=== PATIENT | female | born 1980 | race Caucasian/White ===

== ENCOUNTER 2017-03-31 14:58 | Emergency (ER) | payer MEDICAID ==
[~2017-03-31] VITALS: Ht 177.8 cm; Wt 68.0 kg
[2017-03-31 15:37] LABS: Basophils # (auto) 0 uL; Basophils % (auto) 0.5 % (0.0-2.0); CONDITION Y; Eosinophils # (auto) 0.1 uL; Eosinophils % (auto) 1.5 % (0.0-7.0); Hematocrit 41.2 % (36.0-46.0); Hemoglobin 13.7 g/dL (12.2-16.2); Mean Corpuscular Hemoglobin 28.9 pg (28.0-32.0); Mean Corpuscular Hgb Conc. 33.2 g/dL (32.0-36.0); Mean Corpuscular Volume 87.1 fL (80.0-100.0); Mean Platelet Volume 7.9 fL (7.4-10.4); Monocytes # (auto) 0.6 uL; Monocytes % (auto) 6.9 % (0.0-12.0); Neutrophils # (auto) 6.3 uL; Neutrophils % (auto) 78.1 % (37.0-80.0); Platelet Count (auto) 504 10^3/uL (140-450); Red Cell Distribution Width 15.9 % (11.6-16.0)
[2017-03-31 15:54] LABS: Albumin 4.2 g/dL (3.4-5.0); BUN/Creatinine Ratio 7.4; Bilirubin, Total 0.9 mg/dL (0.2-1.0); Calcium 9.2 mg/dL (8.5-10.1); Potassium 3.9 mmol/L (3.5-5.1); Total Protein 8.1 g/dL (6.4-8.2)
[2017-03-31 17:03] LABS: Urine Blood Negative /uL (Negative); Urine Color Yellow (Yellow); Urine Glucose Normal (Normal); Urine Mucus FEW (None Seen); Urine Nitrite Negative (Negative); Urine RBC 8 /hpf (0 - 4); Urine Squamous Epithelial Cell FEW /hpf (<5); Urine pH 7.5 (5.0-8.0)
[2017-03-31 17:12] LABS: Urine Bilirubin Negative (Negative); Urine Ketone 1+ (Negative)
[2017-03-31] MEDS ORDERED: MORPHINE SULFATE 4 MG/ML SYRG IV ONE (18:15)
[2017-03-31] MEDS ORDERED: ONDANSETRON HCL 4 MG/2 ML VIAL IV ONE (18:15)
[2017-03-31] MEDS ORDERED: diphenhdrAMINE HCL 50 MG/1 ML VL IV ONE (18:30)
[2017-03-31] MEDS ORDERED: MORPHINE SULF INJ 2 MG/ML SYRINGE 1ML IV ONE ×2 (21:30→22:00)
[2017-03-31] MEDS ORDERED: PROMETHAZINE HCL 25 MG/ML 1ML IV ONE ×2 (21:30→22:00)
[2017-04-01 05:47] VITALS: BP 111/65
== END 2017-04-01 05:59 | disposition short-term general hospital (02) ==
LOC: ER 15:12
DX: K80.20 Calculus of gallbladder without cholecystitis without obstruction (principal); F17.210 Nicotine dependence, cigarettes, uncomplicated
CPT/HCPCS: 36415; 76705; 80053; 81001; 81025; 83690; 85025; 93005; 96374; 96375; 96376; 99285; J1200; J2270; J2405; J2550

== ENCOUNTER 2017-04-16 20:46 | Emergency (ER) | payer MEDICAID ==
[~2017-04-16] VITALS: Ht 177.8 cm; Wt 86.2 kg
[2017-04-16] MEDS: LORazepam 2MG/ML-1ML VIAL ONE ×2 (21:34→21:48)
[2017-04-16] MEDS ORDERED: SODIUM CHLORIDE 0.9% 1,000 ML IVB ONE (22:13)
[2017-04-16] MEDS ORDERED: LORazepam 2MG/ML-1ML VIAL IV ONE (22:15)
[2017-04-16 22:18] LABS: Basophils # (auto) 0.1 uL; Basophils % (auto) 0.9 % (0.0-2.0); CONDITION Y; Eosinophils # (auto) 0.6 uL; Eosinophils % (auto) 8.6 % (0.0-7.0); Hematocrit 36.4 % (36.0-46.0); Hemoglobin 11.8 g/dL (12.2-16.2); Lymphocytes # (auto) 2.3 uL; Lymphocytes % (auto) 30.8 % (10.0-50.0); Mean Corpuscular Hemoglobin 28.1 pg (28.0-32.0); Mean Corpuscular Hgb Conc. 32.4 g/dL (32.0-36.0); Mean Corpuscular Volume 86.6 fL (80.0-100.0); Mean Platelet Volume 7.8 fL (7.4-10.4); Monocytes # (auto) 0.5 uL; Monocytes % (auto) 7.3 % (0.0-12.0); Neutrophils # (auto) 3.8 uL; Neutrophils % (auto) 52.4 % (37.0-80.0); Platelet Count (auto) 397 10^3/uL (140-450); Red Cell Distribution Width 16.4 % (11.6-16.0); White Blood Cell 7.3 10^3/uL (4.4-10.8)
[2017-04-16 22:30] LABS: Urine Bilirubin Negative (Negative); Urine Blood TRACE /uL (Negative); Urine Color Colorless (Yellow); Urine Glucose Normal (Normal); Urine Ketone Negative (Negative); Urine Nitrite Negative (Negative); Urine RBC 2 /hpf (0 - 4); Urine Squamous Epithelial Cell FEW /hpf (<5); Urine Urobilinogen Normal (Negative); Urine pH 5.5 (5.0-8.0)
[2017-04-16 22:42] LABS: Albumin 3.7 g/dL (3.4-5.0); BUN/Creatinine Ratio 16.1; Bilirubin, Total 0.1 mg/dL (0.2-1.0); Calcium 8.4 mg/dL (8.5-10.1); Potassium 3.8 mmol/L (3.5-5.1); Total Protein 7.1 g/dL (6.4-8.2)
[2017-04-16] MEDS ORDERED: LEVETIRACETAM INJ 1,000 MG in SODIUM CHL 0.9% 100 ML IV ONE (22:45)
[2017-04-16] MEDS ORDERED: LEVETIRACETAM 500 MG TAB PO ONE (23:15)
[2017-04-17] MEDS ORDERED: ACETAMINOPHEN 500 MG TAB PO ONE (01:08)
[2017-04-17 01:15] VITALS: BP 125/81
== END 2017-04-17 00:42 | disposition home or self-care (01) ==
LOC: EDBD 20:46 → ER 21:03
DX: F10.129 Alcohol abuse with intoxication, unspecified (principal); G40.909 Epilepsy, unspecified, not intractable, without status epilepticus; G92 Toxic encephalopathy; F17.210 Nicotine dependence, cigarettes, uncomplicated; R41.82 Altered mental status, unspecified; Z90.49 Acquired absence of other specified parts of digestive tract; Y90.8 Blood alcohol level of 240 mg/100 ml or more
CPT/HCPCS: 36415; 70450; 80053; 80307; 80320; 81001; 82542; 84702; 85025; 96361; 96374; 99285; J1953; J2060

== ENCOUNTER 2017-10-08 13:42 | Emergency (ER) | payer MEDICAID ==
[~2017-10-08] VITALS: Ht 177.8 cm; Wt 65.8 kg
[2017-10-08 14:01] VITALS: BP 138/91
[2017-10-08] MEDS ORDERED: HYDROcodone-ACET 10/325MG TAB PO ONE (15:30)
== END 2017-10-08 15:30 | disposition home or self-care (01) ==
LOC: ER 13:42
DX: S93.401A Sprain of unspecified ligament of right ankle, initial encounter (principal); F17.210 Nicotine dependence, cigarettes, uncomplicated; F12.10 Cannabis abuse, uncomplicated; Z88.8 Allergy status to other drugs, medicaments and biological substances; Z90.49 Acquired absence of other specified parts of digestive tract; W19.XXXA Unspecified fall, initial encounter; Y93.89 Activity, other specified; Y99.8 Other external cause status; Y92.89 Other specified places as the place of occurrence of the external cause
CPT/HCPCS: 73610

== ENCOUNTER 2017-11-20 19:04 | Emergency (ER) | payer MEDICAID ==
[~2017-11-20] VITALS: Ht 177.8 cm; Wt 70.3 kg
[2017-11-20 20:13] LABS: Basophils # (auto) 0 uL; Basophils % (auto) 0.8 % (0.0-2.0); Eosinophils # (auto) 0.1 uL; Eosinophils % (auto) 1.6 % (0.0-7.0); Hematocrit 39.3 % (36.0-46.0); Hemoglobin 13.1 g/dL (12.2-16.2); Lymphocytes # (auto) 1.4 uL; Lymphocytes % (auto) 23.7 % (10.0-50.0); Mean Corpuscular Hemoglobin 29.6 pg (28.0-32.0); Mean Corpuscular Hgb Conc. 33.3 g/dL (32.0-36.0); Mean Corpuscular Volume 88.7 fL (80.0-100.0); Monocytes # (auto) 0.5 uL; Monocytes % (auto) 7.6 % (0.0-12.0); Neutrophils % (auto) 66.3 % (37.0-80.0); Platelet Count (auto) 274 10^3/uL (140-450); Red Blood Cells 4.43 10^6/uL (4.0-5.20); Red Cell Distribution Width 16.5 % (11.8-14.3)
[2017-11-20 20:18] LABS: INR 1.04 (0.9-1.15); Partial Thromboplastin Time 23.7 sec (22.64-33.71); Prothrombin Time 11.3 sec (9.37-12.3)
[2017-11-20 20:32] LABS: Albumin 3.8 g/dL (3.4-5.0); BUN/Creatinine Ratio 12.5; Bilirubin, Total 0.3 mg/dL (0.2-1.0); Calcium 8.7 mg/dL (8.5-10.1)
[2017-11-21] MEDS ORDERED: PROMETHAZINE HCL 25 MG/ML 1ML IV ONE (04:30)
[2017-11-21 06:14] LABS: Urine Bacteria NONE SEEN /hpf (None Seen); Urine Blood Negative /uL (Negative); Urine Mucus FEW (None Seen); Urine Specific Gravity 1.023 (1.001-1.035); Urine WBC 5 /hpf (0 - 5)
[2017-11-21 06:57] VITALS: BP 119/77
[2017-11-21] MEDS ORDERED: LEVETIRACETAM 500 MG TAB PO ONE (07:30)
[2017-11-21] MEDS ORDERED: ONDANSETRON HCL 4 MG/2 ML VIAL IV ONE (08:00)
[2017-11-21] MEDS ORDERED: LEVETIRACETAM INJ 500 MG in D5W 5% 100 ML IV ONE (08:00)
[2017-11-21] MEDS ORDERED: MORPHINE SULFATE 4 MG/ML SYR/VIAL IV ONE (08:00)
== END 2017-11-21 07:22 | disposition home or self-care (01) ==
LOC: ER 19:04
DX: G40.909 Epilepsy, unspecified, not intractable, without status epilepticus (principal); G35 Multiple sclerosis; F17.210 Nicotine dependence, cigarettes, uncomplicated; G89.4 Chronic pain syndrome; R53.1 Weakness; R42 Dizziness and giddiness
CPT/HCPCS: 36415; 70450; 80053; 81001; 81025; 82542; 85025; 85610; 85730; 96365; 96375; 99285; J1953; J2270; J2405; J2550; J7060

== ENCOUNTER 2017-12-03 17:35 | Inpatient (IN) | payer MEDICAID ==
[~2017-12-03] VITALS: Ht 177.8 cm; Wt 68.0 kg
[2017-12-03] MEDS ORDERED: SODIUM CHLORIDE 0.9% 1,000 ML IVB ONE (18:19)
[2017-12-03] MEDS ORDERED: LORazepam 2MG/ML-1ML VIAL IV ONE (18:30)
[2017-12-03 19:20] LABS: Basophils # (auto) 0.1 uL; Basophils % (auto) 0.9 % (0.0-2.0); Eosinophils # (auto) 0.2 uL; Eosinophils % (auto) 2.9 % (0.0-7.0); Hematocrit 41.8 % (36.0-46.0); Hemoglobin 13.6 g/dL (12.2-16.2); Lymphocytes # (auto) 1.4 uL; Lymphocytes % (auto) 20.2 % (10.0-50.0); Mean Corpuscular Hemoglobin 29.3 pg (28.0-32.0); Mean Corpuscular Hgb Conc. 32.5 g/dL (32.0-36.0); Mean Corpuscular Volume 90.2 fL (80.0-100.0); Monocytes # (auto) 0.7 uL; Neutrophils # (auto) 4.5 uL; Nucleated Red Blood Cells % 0.1 %; Platelet Count (auto) 292 10^3/uL (140-450); Red Blood Cells 4.64 10^6/uL (4.0-5.20); Red Cell Distribution Width 15.8 % (11.8-14.3); White Blood Cell 6.9 10^3/uL (4.4-10.8)
[2017-12-03 19:27] LABS: Acetaminophen < 2.0 ug/mL (10-30)
[2017-12-03 19:35] LABS: Alanine Aminotransferase 16 U/L (13-56); Albumin 3.9 g/dL (3.4-5.0); Alkaline Phosphatase 60 U/L (45-117); Anion Gap 10 (5-15); Aspartate Aminotransferase 15 U/L (15-37); BUN/Creatinine Ratio 12.5; Bilirubin, Total 0.4 mg/dL (0.2-1.0); Blood Alcohol < 3.0 mg/dL (0-5); Blood Urea Nitrogen 10 mg/dL (7-18); Calcium 8.5 mg/dL (8.5-10.1); Carbon Dioxide 18 mmol/L (21-32); Chloride 113 mmol/L (98-107); GFR African American 104 mL/min; GFR Non-African American 86 mL/min; Glucose 121 mg/dL (74-106); Potassium 3.4 mmol/L (3.5-5.1); Sodium 141 mmol/L (136-145); Total Protein 7.5 g/dL (6.4-8.2)
[2017-12-03] MEDS ORDERED: LEVETIRACETAM INJ 1,000 MG in D5W 5% 100 ML IV ONE (20:15)
[2017-12-03] MEDS ORDERED: LORazepam 2MG/ML-1ML VIAL IV PRN (20:15)
[2017-12-03] MEDS ORDERED: LEVETIRACETAM INJ 500 MG in D5W 5% 100 ML IV SCH (22:00)
[2017-12-04] MEDS ORDERED: PROMETHAZINE HCL 25 MG/ML 1ML IV ONE (04:00)
[2017-12-04] MEDS ORDERED: ACETAMINOPHEN 500 MG TAB PO PRN (04:30)
[2017-12-04] MEDS ORDERED: LORazepam 2MG/ML-1ML VIAL IV PRN (04:30)
[2017-12-04] MEDS ORDERED: ONDANSETRON HCL 4 MG/2 ML VIAL IV PRN (04:30)
[2017-12-04 05:55] VITALS: BP 140/51
[2017-12-04] MEDS ORDERED: GABAPENTIN 300 MG CAP PO SCH (06:00)
[2017-12-04 06:22] LABS: Basophils # (auto) 0.1 uL; Basophils % (auto) 1.4 % (0.0-2.0); Eosinophils # (auto) 0.2 uL; Hematocrit 40.1 % (36.0-46.0); Hemoglobin 13.1 g/dL (12.2-16.2); Lymphocytes # (auto) 1.2 uL; Lymphocytes % (auto) 22.2 % (10.0-50.0); Mean Corpuscular Hemoglobin 29.1 pg (28.0-32.0); Mean Corpuscular Hgb Conc. 32.7 g/dL (32.0-36.0); Mean Corpuscular Volume 89.2 fL (80.0-100.0); Monocytes # (auto) 0.5 uL; Neutrophils # (auto) 3.4 uL; Neutrophils % (auto) 64.4 % (37.0-80.0); Nucleated Red Blood Cells % 0.1 %; Platelet Count (auto) 256 10^3/uL (140-450); Red Cell Distribution Width 15.9 % (11.8-14.3); White Blood Cell 5.3 10^3/uL (4.4-10.8)
[2017-12-04 06:42] LABS: BUN/Creatinine Ratio 14.1; Calcium 8.7 mg/dL (8.5-10.1); Potassium 3.9 mmol/L (3.5-5.1)
[2017-12-04 09:23] LABS: Urine Bacteria NONE SEEN /hpf (None Seen); Urine Blood Negative /uL (Negative); Urine Budding Yeast MODERATE /hpf (None Seen); Urine Mucus FEW (None Seen); Urine Specific Gravity 1.031 (1.001-1.035); Urine WBC 2 /hpf (0 - 5)
[2017-12-04 09:45] LABS: Alcohol, Urine < 3.0 mg/dL (0-5); Amphetamine Screen, Urine NEGATIVE (NEGATIVE); Barbiturate Scree,Urine NEGATIVE (NEGATIVE); Benzodiazephine Screen, Urine POSITIVE (NEGATIVE); Cannabinoid Screen, Urine NEGATIVE (NEGATIVE); Cocaine Screen, Urine NEGATIVE (NEGATIVE); Opiate Scree,Urine NEGATIVE (NEGATIVE); Phencyclidine Screen, Urine NEGATIVE (NEGATIVE)
[2017-12-04] MEDS ORDERED: lamoTRIgine 100 MG TAB PO SCH (10:00)
[2017-12-04] MEDS ORDERED: LEVETIRACETAM 500 MG TAB PO SCH (10:00)
[2017-12-06] MEDS ORDERED: LAMO200T34 PO (11:55)
[2017-12-06] MEDS ORDERED: ALPR0.5T7 PO (11:55)
[2017-12-06] MEDS ORDERED: TIZA4CAP13 PO (11:55)
[2017-12-06] MEDS ORDERED: OXYC-113 PO (11:55)
== END 2017-12-04 07:00 | disposition left against medical advice (07) | DRG 812 ==
LOC: ER 17:39 → OVERFLOW 17:40
PROVIDERS: ADMIT Nurse Practitioner Family; ATTEND Internal Medicine
DX: T42.8X1A Poisoning by antiparkinsonism drugs and other central muscle-tone depressants, accidental (unintentional), initial encounter (principal); G35 Multiple sclerosis; G40.409 Other generalized epilepsy and epileptic syndromes, not intractable, without status epilepticus; F17.200 Nicotine dependence, unspecified, uncomplicated; G89.4 Chronic pain syndrome; Z79.899 Other long term (current) drug therapy; Z90.49 Acquired absence of other specified parts of digestive tract; Y92.89 Other specified places as the place of occurrence of the external cause
CPT/HCPCS: 36415; 80048; 80053; 80307; 80320; 80329; 81001; 85025; 93005; 94761; 96361; 96365; 96375; J7060

== ENCOUNTER 2018-01-09 11:33 | Emergency (ER) | payer MEDICAID ==
[~2018-01-09] VITALS: Ht 177.8 cm; Wt 68.0 kg
[~2018-01-09 11:33] MED LIST: ALPR0.5T7 PO; LAMO200T34 PO; OXYC-113 PO; TIZA4CAP13 PO
[2018-01-09] MEDS: SODIUM CHLORIDE 0.9% 1,000 ML IVB ONE (11:44)
[2018-01-09 12:15] LABS: Basophils # (auto) 0 uL; Basophils % (auto) 0.4 % (0.0-2.0); Eosinophils # (auto) 0 uL; Eosinophils % (auto) 0.1 % (0.0-7.0); Hematocrit 40.8 % (36.0-46.0); Hemoglobin 13.5 g/dL (12.2-16.2); Lymphocytes # (auto) 0.4 uL; Lymphocytes % (auto) 4.9 % (10.0-50.0); Mean Corpuscular Hemoglobin 30.1 pg (28.0-32.0); Mean Corpuscular Hgb Conc. 33.1 g/dL (32.0-36.0); Mean Corpuscular Volume 90.8 fL (80.0-100.0); Monocytes # (auto) 0.1 uL; Monocytes % (auto) 1.4 % (0.0-12.0); Neutrophils # (auto) 6.8 uL; Neutrophils % (auto) 93.2 % (37.0-80.0); Nucleated Red Blood Cells % 0.1 %; Platelet Count (auto) 302 10^3/uL (140-450); Red Blood Cells 4.49 10^6/uL (4.0-5.20); Red Cell Distribution Width 15.4 % (11.8-14.3); White Blood Cell 7.3 10^3/uL (4.4-10.8)
[2018-01-09] MEDS: METOCLOPRAMIDE HCL 5MG/ml INJ 2ml VIAL IV ONE (12:31)
[2018-01-09] MEDS: MORPHINE SULFATE 4 MG/ML SYR/VIAL IV ONE (12:31)
[2018-01-09] MEDS: LORazepam 2MG/ML-1ML VIAL ONE (12:32)
[2018-01-09] MEDS: LORazepam 2MG/ML-1ML VIAL IV ONE (12:32)
[2018-01-09 12:34] LABS: BUN/Creatinine Ratio 21.5; Bilirubin, Total 0.6 mg/dL (0.2-1.0); Calcium 8.5 mg/dL (8.5-10.1); Potassium 4.3 mmol/L (3.5-5.1); Total Protein 7.4 g/dL (6.4-8.2)
[2018-01-09] MEDS: LEVETIRACETAM INJ 1,000 MG in D5W 5% 100 ML IV ONE (13:11)
[2018-01-09] MEDS ORDERED: SODIUM CHLORIDE 0.9% 1,000 ML IV SCH (13:35)
[2018-01-09] MEDS ORDERED: ACETAMINOPHEN 500 MG TAB PO PRN (13:45)
[2018-01-09] MEDS ORDERED: ALPRAZolam 0.5 MG TAB PO PRN (13:45)
[2018-01-09] MEDS ORDERED: LACTULOSE 20Gm/30ML SOLN PO PRN (13:45)
[2018-01-09] MEDS ORDERED: TEMAZEPAM 15 MG CAP PO PRN (13:45)
[2018-01-09] MEDS ORDERED: MORPHINE SULFATE 4 MG/ML SYR/VIAL IV PRN ×2 (13:45)
[2018-01-09] MEDS ORDERED: PROMETHAZINE HCL 25 MG/ML 1ML IV PRN (13:45)
[2018-01-09] MEDS ORDERED: NITROGLYCERIN 0.4 MG SL TAB SL PRN (13:45)
[2018-01-09] MEDS ORDERED: LORazepam 0.5 MG TAB PO PRN (13:45)
[2018-01-09] MEDS ORDERED: LORazepam 2MG/ML-1ML VIAL IV PRN (13:45)
[2018-01-09] MEDS ORDERED: ACETAMINOPHEN PO SCH (14:00)
[2018-01-09] MEDS ORDERED: OXYCODONE PO SCH (14:00)
[2018-01-09] MEDS: lamoTRIgine 100 MG TAB PO SCH (14:24)
[2018-01-09 14:29] VITALS: BP 89/69
[2018-01-09] MEDS: HYDROcodone-ACET 5/325MG TAB PO PRN (14:30)
[2018-01-10] MEDS ORDERED: TIZANIDINE HCL 4 MG PO SCH (10:00)
[2018-01-10] MEDS ORDERED: ENOXAPARIN SOD 40 MG/0.4 ML SYRINGE SC SCH (10:00)
== END 2018-01-09 14:59 | disposition left against medical advice (07) ==
LOC: EDBD 11:33 → ER 11:33
DX: R56.9 Unspecified convulsions (principal); R73.9 Hyperglycemia, unspecified; G35 Multiple sclerosis; F17.210 Nicotine dependence, cigarettes, uncomplicated; Z90.49 Acquired absence of other specified parts of digestive tract; Z98.51 Tubal ligation status; Z53.29 Procedure and treatment not carried out because of patient's decision for other reasons
CPT/HCPCS: 36415; 80053; 83735; 85025; 85652; 94761; 96361; 96365; 96366; 96375; 99285; J1953; J2060; J2270; J2765; J7060

== ENCOUNTER 2018-06-04 17:28 | Observation (INO) | payer MEDICAID ==
[~2018-06-04] VITALS: Ht 177.8 cm; Wt 65.8 kg
[2018-06-04] MEDS ORDERED: SODIUM CHLORIDE 0.9% 1,000 ML IVB ONE (19:11)
[2018-06-04 19:14] LABS: Basophils # (auto) 0 uL; Basophils % (auto) 0.6 % (0.0-2.0); Eosinophils # (auto) 0.4 uL; Eosinophils % (auto) 5.4 % (0.0-7.0); Hematocrit 43.1 % (36.0-46.0); Hemoglobin 14.4 g/dL (12.2-16.2); Lymphocytes # (auto) 1.3 uL; Mean Corpuscular Hemoglobin 30.6 pg (28.0-32.0); Mean Corpuscular Hgb Conc. 33.4 g/dL (32.0-36.0); Mean Corpuscular Volume 91.6 fL (80.0-100.0); Monocytes # (auto) 0.3 uL; Neutrophils # (auto) 4.5 uL; Nucleated Red Blood Cells % 0.1 %; Platelet Count (auto) 312 10^3/uL (140-450); Red Blood Cells 4.71 10^6/uL (4.0-5.20); Red Cell Distribution Width 14.8 % (11.8-14.3); White Blood Cell 6.6 10^3/uL (4.4-10.8)
[2018-06-04] MEDS ORDERED: PROMETHAZINE HCL 25 MG/ML 1ML IV ONE ×2 (19:15→21:15)
[2018-06-04] MEDS ORDERED: MORPHINE SULFATE 4 MG/ML SYR/VIAL IV ONE ×2 (19:15→22:15)
[2018-06-04 19:18] LABS: Urine Bacteria FEW /hpf (None Seen); Urine Blood Negative /uL (Negative); Urine Mucus FEW (None Seen); Urine Specific Gravity 1.009 (1.001-1.035); Urine WBC 3 /hpf (0 - 5)
[2018-06-04 19:30] LABS: Albumin 3.9 g/dL (3.4-5.0); BUN/Creatinine Ratio 9.9; Calcium 8.8 mg/dL (8.5-10.1); Potassium 4.5 mmol/L (3.5-5.1)
[2018-06-04 19:44] LABS: Bilirubin, Total 0.5 mg/dL (0.2-1.0); Total Protein 7.9 g/dL (6.4-8.2)
[2018-06-04 19:51] LABS: INR 0.92 (0.9-1.15); Prothrombin Time 9.9 sec (9.27-12.13)
[2018-06-04] MEDS ORDERED: HYDROcodone-ACET 10/325MG TAB PO ONE (21:15)
[2018-06-04 22:06] VITALS: BP 116/74
[2018-06-04] MEDS ORDERED: diphenhdrAMINE HCL 50 MG/1 ML VL IV ONE (23:30)
== END 2018-06-05 00:55 | disposition home or self-care (01) | DRG 111 ==
LOC: EDBD 17:28 → ER 17:28 → OVERFLOW 17:29 → ER 06-05 00:55
PROVIDERS: ADMIT Family Medicine; ATTEND Family Medicine
DX: R42 Dizziness and giddiness (principal); I95.9 Hypotension, unspecified; F11.20 Opioid dependence, uncomplicated; F17.210 Nicotine dependence, cigarettes, uncomplicated; G35 Multiple sclerosis; G40.909 Epilepsy, unspecified, not intractable, without status epilepticus
CPT/HCPCS: 36415; 70450; 71045; 73610; 73630; 80053; 81001; 83735; 85025; 85610; 85730; 93005; 96361; 96374; 96375; 96376; 99285; G0378; J2270; J2550